=== PATIENT | female | born 1945 | race Caucasian/White ===

== ENCOUNTER 2019-03-23 08:30 | Outpatient (CLI) | payer MEDICARE ==
--- NOTE | 2019-03-23 14:00 | Mammography Report ---
Reason: ROUTINE MAMMO Procedure Date: 03/23/2019 Accession Number: [id number] / [id number] Procedure: MGS - Screening Mammo Dig Bilat CPT Code: Final Report FULL RESULT: EXAM: Screening Mammo Dig Bilat DATE: 03/23/2019 8:52 AM CLINICAL HISTORY: Routine screening TECHNIQUE: (B) - Bilateral CC and MLO views were obtained. COMPARISON: 04/19/2016, 07/24/2014, 10/07/2010 and 08/12/2009 PARENCHYMAL PATTERN: (A) - The breasts demonstrate scattered fibroglandular densities bilaterally. FINDINGS: No significant interval change. There are no suspicious masses, calcifications, or areas of distortion. IMPRESSION: Negative examination. BI-RADS category 1. RECOMMENDATION: (ANNUAL) - Recommend routine annual screening mammography. BI-RADS CATEGORY: (1) - Negative. STANDARD QUALIFYING STATEMENTS: 1. This examination was not reviewed with the aid of Computer-Aided Detection (CAD). 2. A negative or benign imaging report should not preclude biopsy if clinically suspicious findings are present. 3. Dense breasts may obscure an underlying neoplasm. 4. This examination was reviewed without the aid of 3D breast imaging (tomosynthesis).
== END 2019-03-23 08:31 | disposition home or self-care (01) ==
LOC: DI.S 08:30
DX: Z12.31 Encounter for screening mammogram for malignant neoplasm of breast (principal)
CPT/HCPCS: 77067

== ENCOUNTER 2019-07-17 09:44 | Outpatient (CLI) | payer MEDICARE, OTHER ==
[2019-07-17 10:41] VITALS: BP 129/91
--- NOTE | 2019-07-17 10:41 | SLEEP CARE CONSULTATION ---
Information from patient questionnaire entered by Noni Saldivar. I have reviewed and concur with the information entered by Noni Saldivar. This document represents the service I personally performed and the decisions made by me, Paulette Petersen MD, [facility]. History of Present Illness Reason for Visit: New patient Chief Complaint: reports: Unrefreshed sleep, Snoring, Observed pauses in breathing, Frequent awakenings at night Duration of Symptoms: 2+ years Usual bedtime: 1411-6254 Time it takes to fall asleep: 2-120 minutes Snores at night: Yes Observed to quit breathing while asleep: Yes Sleeps alone due to snoring: Yes (at times) Number of times waking at night: 2-5 Reasons for waking at night: reports: Other (cramps in left foot) Toss, Turn, or Twitch while sleeping: Yes Recalls having dreams: Yes (especially with melatonin) Usually gets out of bed at: 0443-5629 Morning headache: No Sleepy or fatigued during the day: No Ever fallen asleep while driving: Yes (once, years ago) Takes day naps: Yes Dreams during day naps: No Prior sleep studies: No Additional HPI information: I had the pleasure of seeing Mrs. Quiñonez along with her today regarding the possibility of her having a sleep disorder. As you know, she is a 74 year old lady who complains of loud snore, observed apneas, frequent awakenings, and unrefreshed sleep for the past 2 years. The patient tells me that she normally goes to bed around 10 10:30 pm, and it takes her approximately 2 minutes 2 hours to fall asleep. She occasionally takes melatonin. She has been told that she snores loudly and irregularly at night. She has also been observed to stop breathing in her sleep. Her spouse can still sleep in the same bed. She can recall waking up on the average of 2 - 5 times during the night. Most of the time she wakes up because of cramps in her left foot. She has awakened occasionally because of her own snoring, choking, and having to gasp for air. There is a lot of tossing and turning in her sleep. No somniloquy (sleep talking) or somnambulism (sleep walking). Generally she can recall having dreams. In the morning she usually gets up out of the bed around 6:30 - 7 a.m. not feeling refreshed nor rested. She usually does not have a morning headache. During the day she complains of feeling occasionally sleepy and fatigued. Her score on [place] Sleepiness Scale is 10 out of 24. She has fallen asleep while driving and has gone out of the [place]. She usually takes naps during the day. Upon falling asleep during the day she denies having vivid dreams. She has never had sleep paralysis, experienced cataplexy but reports symptoms of restless leg syndrome. She reports having impaired concentration during the day. Subjective Initial [place] Sleepiness Scale score: 10 Past Medical History Past Medical History: reports: Arthritis Social History The patient's occupation is RETIRED. Patient is and lives in [place]. Have you smoked in the past 12 months: No Alcohol use: Yes Alcohol amount and frequency: 1 glass, 3 times/week Caffeine use: Yes Caffeine amount and frequency: 2 cups/morning Family History Family history of sleep disordered breathing: Yes (father had trouble getting full night sleep) Allergies and Home Medications Drug allergies reviewed: Yes (NKDA) Home medication list reviewed: Yes (gabapentin and melatonin) Review of Systems Cardiovascular: denies: high blood pressure, palpitations, chest pain, irregular heart rate or pulse, leg or foot swelling, have to sleep sitting up, other Respiratory: denies: shortness of breath, wheeze, sputum production, chronic cough, other Gastrointestinal: denies: heartburn, difficulty swallowing, nausea, vomitting, diarrhea, abdominal pain, other Urinary: denies: incontinence, frequency, urgency, impotence, other Neurological: denies: headaches, seizure, head trauma, disorientation, speech dysfunction, gait or balance problems, fainting or unconsciousness, other Psychiatric: denies: Attention Deficit Hyperactivity, anxiety, depression, mood disorder, claustrophobia, other Ear/Nose/Throat: denies: nasal congestion, sinus problems, nose bleeds, dry mouth/throat, hoarseness, injury to nose, tonsillectomy, wisdom teeth removed, other Endocrine: denies: thyroid disease, history of goiter, sluggishness, too hot or cold, excessive thirst, increased appetite, increased urination, unexplained weakness, other Musculoskeletal: denies: joint pain, neck pain, back pain, joint swelling, muscle pain or cramping, mobility problems, other Immunologic: denies: sneezing, rash, itching, allergies to food or environment, other Physical Exam Vital signs obtained and entered by: Dr. Petersen Blood Pressure: 129/91 Cuff size: regular Heart Rate: 71 O2 Saturation: 98 Height: 5 ft 5 in Weight: 125 lb Body Mass Index: 20.7 BMI Classification: Healthy weight Neck circumference: 13 HEENT: No craniofacial malformation Nostrils: patent to airflow Turbinates: normal Septum: midline Mouth and throat: narrow oropharynx Soft palate: long Hard palate: normal Uvula: normal Uvula visualization: 50% Mallampati Class II Tongue: enlarged in size with teeth dia on lateral edges Tonsils: small Chin and jaw: normal size and position Neck: normal w/o lymphadenopathy or thyromegaly Heart: regular rate and rhythm Lungs: clear bilaterally Abdomen: soft, non-tender Extremities: no edema or clubbing Neurologic: intact, no focal deficits Impression and Plan IMPRESSION: 1. Obstructive Sleep Apnea-Hypopnea Syndrome, as suggested by history of loud and irregular snoring, observed cessation of breath while asleep, frequent awakenings during the night, unrefreshed sleep, cognitive impairment, and daytime hypersomnolence. Narrow oropharynx is a common predisposing factor for obstructive sleep apnea-hypopnea syndrome. Pathophysiology of sleep-disordered breathing was discussed. I recommend proceeding to polysomnography to confirm the diagnosis and to assess severity. If she has significant sleep disordered breathing, a manual CPAP titration study will also be performed to find the optimal treatment pressure. I informed the patient of what the sleep studies involve and after some discussion, she agreed to proceed. Plan: 1. Schedule an in-laboratory polysomnography + manual CPAP titration study. 2. Avoid long distance driving or when feeling sleepy. 3. Avoid alcohol, sedative and muscle relaxant around bedtime. 4. Return in 1 to 2 weeks after the study to discuss results and initiate therapy. I spent 100% of this visit face to face with the patient with greater than 50% of this was spent time counseling the patient and coordination of care.
== END 2019-07-17 09:45 | disposition home or self-care (01) ==
LOC: SC 09:44
PROVIDERS: ATTEND Internal Medicine Pulmonary Disease
DX: G47.10 Hypersomnia, unspecified (principal); R06.81 Apnea, not elsewhere classified; G47.8 Other sleep disorders; R41.89 Other symptoms and signs involving cognitive functions and awareness; R06.83 Snoring
CPT/HCPCS: 99203; G0463; 99212

== ENCOUNTER 2019-11-01 20:56 | Outpatient (CLI) | payer MEDICARE, OTHER | END 2019-11-01 20:57 | disposition home or self-care (01) | LOC: SC 20:56 | PROVIDERS: ATTEND Internal Medicine Pulmonary Disease | DX: G47.33 Obstructive sleep apnea (adult) (pediatric) (principal); G47.61 Periodic limb movement disorder | CPT/HCPCS: 95810 ==

== ENCOUNTER 2019-11-15 15:15 | Outpatient (CLI) | payer MEDICARE, OTHER ==
[2019-11-15 16:15] VITALS: BP 110/70
--- NOTE | 2019-11-15 16:15 | SLEEP CARE CONSULTATION ---
Information from patient questionnaire entered by Zulma Mckeon. I have reviewed and concur with the information entered by Zulma Mckeon. This document represents the service I personally performed and the decisions made by me, Jen Feliciano, RN, MSN, [employer]. History of Present Illness Service Date and Time: 11/15/2019 1515 Initial [place] Sleepiness Scale score: 10 (in 2019) Current [place] Sleepiness Scale score: 5 Additional HPI information: ADOLPH PIERCE returns with spouse for follow up and results of the recently performed polysomnography. I explained the pathophysiology behind obstructive sleep apnea. We then spent quite a bit of time discussing different treatment options. For mild obstructive sleep apnea, surgery and oral appliance are alternatives to nasal CPAP therapy but in moderate or severe cases, nasal CPAP is the most effective and reliable treatment. Because apnea is primarily in supine position, then positional management therapy could be effective. Methods discussed such as positioning with pillows, using a T-shirt with tennis balls in the back, and commercial products that have a pillow format on back to prevent supine sleep. I reviewed the impact of weight changes on sleep apnea . After some discussion, the patient opted to go with the oral appliance. Process discussed and Non Pap treatment pamphlets reviewed and given to patient. Patient counseled not drink alcohol less than 4 hours before bedtime as it can increase snoring and apnea. Patient was cautioned about risks of drowsy driving until sleepiness symptoms resolve. AAS patient education on snoring and sleep apnea given and reviewed. Sleep Study - Results Polysomnography/Home Sleep Study results: The quality of the study is good. The patient had slightly reduced sleep efficiency due to a prolonged awakening in the second half of the night. The sleep architecture was abnormal for sleep fragmentation and reduced amount of time spent in REM sleep. Respiratory monitoring showed mild obstructive sleep apneahypopnea (AHI = 6.2) associated with frequent arousals, oxyhemoglobin desaturation and mild hypoxia (buddy oxygen saturation of 87%). The respiratory events occurred almost exclusively during supine sleep (supine AHI = 7.4; non-supine = 4.53). Snore was very loud in intensity. There was mild periodic leg movement of sleep contributing to the sleep fragmentation.. Cardiac rhythm was normal sinus rhythm without significant arrhythmia. No abnormal behavior (parasomnia) observed during the night. CONCLUSIONS and RECOMMENDATIONS: 1. The patient has mild obstructive sleep apnea-hypopnea. ICD- 10 G47.33. Positive airway pressure therapy is indicated if the patient is symptomatic or has comorbid conditions such as hypertension, cerebrovascular or ischemic heart disease. Other types of therapy such as upper airway surgery and oral appliance may be considered depending of clinical findings. Because the respiratory events occurred almost exclusively during supine sleep, positioning therapy should be effective as well. A follow up manual CPAP titration study is recommended to find the optimal treatment pressure if CPAP is going to be utilized. 2. Periodic leg movement (ICD G47.61), mild, treatment may be indicated. Clinical correlation advised. Electronically signed by: Paulette Petersen M.D. Diplomate, [place] [employer] Physical Exam Blood Pressure: 110/70 Cuff size: regular Heart Rate: 75 O2 Saturation: 98 Height: 5 ft 5 in Weight: 122 lb 3.2 oz Body Mass Index: 20.3 BMI Classification: Healthy weight Impression and Plan 1. Obstructive Sleep Apnea-Hypopnea Syndrome, mild, with lowest oxygen saturation of 87%. Possibly this is the cause of the patients symptoms of unrefreshed sleep, and excessive daytime sleepiness. After some discussion, the patient opted to go with the oral appliance. AASM non PAP treatment patient education reviewed and given to patient with list of accredited dentists and one non-accredited dentist in general area to call for a consult. A prescription was given to start process. Patient advised to check insurance to see if oral appliance is covered. Some dentists do not take Medicare. I will have patient follow up in 3 months to check effectiveness of treatment. If reduction of s ymptoms and comfortable with treatment, a polysomnography will be ordered using the oral appliance to check efficacy of treatment. Because the apnea is more severe supine, I instructed to avoid sleeping supine using pillow positioning until able to start oral appliance use. 2. Periodic limb movement, mild, that did not fragment patients sleep. Periodic limb movement of sleep (PLMS) is characterized by episodes of repetitive limb movements that occur during sleep and usually involve the lower limbs. The etiology is unknown but can be associated with restless leg syndrome (RLS), neuropathy, spinal cord diseases, kidney disease, rheumatological disorders, narcolepsy, obstructive sleep apnea, and REM sleep behavior disorder. Other factors that can increase PLMS and/or RLS are heredity and iron deficiency as reflected by a low serum ferritin level below 50 to 75mcg / L. Several medications can precipitate or aggravate PLMS such as selective serotonin re- uptake inhibitor antidepressants, tricyclic antidepressants, lithium, and dopamine receptorantagonists with the exception of bupropion. Caffeine can also aggravate PLMS and should be avoided. Sleep hygiene methods can also improve sleep as well as lifestyle changes such as regular exercise. Patient was advised that further evaluation is indicated due to her back pain and leg tingling and cramps. She is to follow up with her PCP. * Prescription for oral appliance ( advanced mandibular device). * Avoid alcohol consumption near bedtime * The patient is cautioned about driving until sleepiness is completely resolved. * Return in 3 months after oral applaince for follow up. I will check her response at that time. Visit Type: In Office Time Spent with Patient (minutes): 35 Provider Statement: I spent 100% of the Face to Face Visit with the patient with greater than 50% spent counseling the patient and coordination of care.
== END 2019-11-15 15:16 | disposition home or self-care (01) ==
LOC: SC 15:15
PROVIDERS: ATTEND Nurse Practitioner Family
DX: G47.33 Obstructive sleep apnea (adult) (pediatric) (principal); G47.61 Periodic limb movement disorder
CPT/HCPCS: 99214; G0463; 99212

== ENCOUNTER 2021-01-03 15:43 | Emergency (ER) | payer MEDICARE, OTHER ==
[2021-01-03 16:04] VITALS: BP 160/90
--- NOTE | 2021-01-03 17:10 | ED Physician Documentation ---
PD HPI ABD PAIN - Stated complaint Stated Complaint: BLOOD IN STOOL - Chief complaint Chief Complaint: Abd Pain - History obtained from History obtained from: Patient - Additional information Additional information: This is a generally very healthy 75-year-old woman who had a bloody bowel movement today. It was a single episode. The bowel movement was otherwise normal, not particularly hard or diarrheal. It was not painful. There was blood in the bowl, less so on the toilet paper and not really mixed in with the stool. She never had this before. Last colonoscopy 5 years ago with polyps, no other findings per her. She thought she might of had bloody stools a couple times last week but it looked different to her, and she had been eating beets. Review of Systems Constitutional: reports: Reviewed and negative Throat: reports: Reviewed and negative Cardiac: reports: Reviewed and negative Respiratory: reports: Reviewed and negative PD PAST MEDICAL HISTORY - Allergies Allergies/Adverse Reactions: Allergies Allergy/AdvReac Type Severity Reaction Status Date / Time No Known Drug Allergies Allergy Verified 01/03/21 16:02 PD ED PE NORMAL - Vitals Vital signs reviewed: Yes - General General: Alert and oriented X 3, No acute distress - HEENT HEENT: PERRL, EOMI - Abdomen Abdomen: Soft, Non tender - Rectal Rectal: Other (Yang done with Diane CHIANG present and chaperoning. There is a left-sided hemorrhoid with evidence of recent bleeding.) - Neuro Neuro: Alert and oriented X 3, Normal speech - Psych Psych: Normal mood, Normal affect Results - Vitals Vitals: Vital Signs - 24 hr 01/03/21 16:02 Temperature 36.5 C Heart Rate 70 Respiratory 16 Rate Blood Pressure 160/90 H O2 Saturation 98 Oxygen O2 Source Room air PD MEDICAL DECISION MAKING - ED course ED course: 75-year-old woman with single episode of hematochezia. This looks like it was due to a hemorrhoid on exam. Her hemodynamics are normal and her exam is otherwise benign. She was given close return precautions. Departure - Departure Disposition: 01 Home, Self Care Clinical Impression: Bleeding hemorrhoid Condition: Good Record reviewed to determine appropriate education?: Yes Instructions: ED Hematochezia Stable Comments: As discussed, it looks today like the source of your bleeding was a hemorrhoid. This is almost always benign and self-limited. That said return if worsening or if you develop other new or worrisome symptoms. Talk with your doctor about referral for colonoscopy as well since it sounds like you may be due.
== END 2021-01-03 17:22 | disposition home or self-care (01) ==
LOC: ED 15:43
DX: K64.9 Unspecified hemorrhoids (principal)
CPT/HCPCS: 99281; 99282

== ENCOUNTER 2021-01-22 07:00 | Outpatient (CLI) | payer MEDICARE, OTHER | END 2021-01-22 23:59 | disposition home or self-care (01) | LOC: COV 07:00 | PROVIDERS: ATTEND Family Medicine | DX: R05 Cough (principal); R53.83 Other fatigue; R68.83 Chills (without fever); R07.0 Pain in throat; R19.7 Diarrhea, unspecified; R09.81 Nasal congestion; J34.89 Other specified disorders of nose and nasal sinuses; Z20.822 Contact with and (suspected) exposure to COVID-19 ==

== ENCOUNTER 2023-03-24 08:14 | Outpatient (CLI) | payer MEDICARE ==
[2023-03-24 14:41] LABS: BASOPHILS # (AUTO) 0.1 10^3/uL (0.0-0.1); BASOPHILS % (AUTO) 0.9 %; EOSINOPHILS # (AUTO) 0.4 10^3/uL (0.0-0.7); EOSINOPHILS % (AUTO) 4.8 %; HCT - HEMATOCRIT 37.1 % (37.0-47.0); HGB - HEMOGLOBIN 12.2 g/dL (12.0-16.0); LYMPHOCYTES # (AUTO) 2.4 10^3/uL (1.5-3.5); LYMPHOCYTES % (AUTO) 30.8 %; MEAN CORPUSCULAR HEMOGLOBIN 30.5 pg (27.0-31.0); MEAN CORPUSCULAR HGB CONC 32.9 g/dL (32.0-36.0); MEAN CORPUSCULAR VOLUME 92.8 fL (81.0-99.0); MEAN PLATELET VOLUME 9.4 fL (7.9-10.8); MONOCYTES # (AUTO) 0.8 10^3/uL (0.0-1.0); MONOCYTES % (AUTO) 9.8 %; NEUTROPHILS # (AUTO) 4.2 10^3/uL (1.5-6.6); NEUTROPHILS % (AUTO) 53.4 %; PLT - PLATELET COUNT 398 10^3/uL (130-450); RED CELL DISTRIBUTION WIDTH 13.3 % (12.0-15.0); WHITE BLOOD COUNT 7.8 x10^3/uL (4.8-10.8)
[2023-03-24 15:18] LABS: ALBUMIN 3.9 g/dL (3.2-5.5); ALBUMIN/GLOBULIN RATIO 1.3 (1.0-2.2); ALKALINE PHOSPHATASE 56 IU/L (42-121); ALT ALANINE AMINOTRANSFERASE 15 IU/L (10-60); AST ASPARTATE AMINOTRANSFERASE 19 IU/L (10-42); BILIRUBIN,TOTAL 0.5 mg/dL (0.2-1.0); BUN - BLOOD UREA NITROGEN 16 mg/dL (6-20); CALCIUM 9.2 mg/dL (8.5-10.3); CARBON DIOXIDE - CO2 31 mmol/L (21-32); CHLORIDE 107 mmol/L (101-111); CHOL/HDL RATIO 2.5 (<4.4); CHOLESTEROL 158 mg/dL; CREATININE 0.9 mg/dL (0.6-1.3); GFR - MDRD 61 (>89); GLUCOSE 87 mg/dL (74-104); HDL CHOLESTEROL 62 mg/dL; POTASSIUM 4.1 mmol/L (3.5-4.5); SODIUM 141 mmol/L (135-145); TOTAL PROTEIN 6.8 g/dL (6.4-8.9)
[2023-03-24 16:00] LABS: THYROID STIMULATING HORMONE 2.94 uIU/mL (0.34-5.60)
[2023-03-24 16:28] LABS: LDL CHOLESTEROL,CALCULATED 81 mg/dL; LDL/HDL RATIO 1.3 (<4.4); TRIGLYCERIDES 77 mg/dL (48-352); VLDL CHOLESTEROL 15 mg/dL
== END 2023-03-24 08:15 | disposition home or self-care (01) ==
LOC: LAB.S 08:14
PROVIDERS: ATTEND Nurse Practitioner Acute Care
DX: Z13.228 Encounter for screening for other metabolic disorders (principal); Z13.220 Encounter for screening for lipoid disorders; Z13.29 Encounter for screening for other suspected endocrine disorder; Z13.0 Encounter for screening for diseases of the blood and blood-forming organs and certain disorders involving the immune mechanism
CPT/HCPCS: 36415; 80053; 80061; 83721; 84443; 85025

== ENCOUNTER 2023-05-06 08:00 | Outpatient (CLI) | payer MEDICARE | END 2023-05-06 08:01 | disposition home or self-care (01) | LOC: LAB.S 08:00 | PROVIDERS: ATTEND Registered Nurse | DX: U07.1 COVID-19 (principal) ==

== ENCOUNTER 2023-06-06 14:05 | Outpatient (CLI) | payer MEDICARE ==
--- NOTE | 2023-06-06 20:49 | Ultrasound Report ---
PROCEDURE: Ankle Brachial Index INDICATIONS: BILATERAL LEG PAIN, PAD TECHNIQUE: Ankle-brachial indices were obtained bilaterally and recorded. COMPARISONS: None. FINDINGS: Right brachial: 172 mmHg Right ankle: 153 mmHg Right ankle brachial index (ALAN): 0.8 Left brachial: 170mmHg Left ankle: 158 mmHg Left ankle brachial index (ALAN): 0.9 Healing potential: Ankle pressures >55 mm Hg in non-diabetics and >80 mm Hg in diabetics are likely to achieve primary h ealing of ischemic foot ulcers. Toe pressures >30 mm Hg are likely to achieve primary healing of ischemic foot ulcers, toe or transme tatarsal amputations. IMPRESSION: 1.Right lower extremity resting ALAN is mildly reduced at 0.8. 2.Left lower extremity resting ALAN is borderline normal at 0.9. Reviewed by: Edilberto Mascorro MD on 06/06/2023 8:48 PM PST Approved by: Edilberto Mascorro MD on 06/06/2023 8:48 PM PST Station ID: [id number]
--- NOTE | 2023-06-06 20:52 | Ultrasound Report ---
PROCEDURE: Arterial Duplex Lwr Ext BL INDICATIONS: BILATERAL LEG PAIN, PAD TECHNIQUE: Color and pulse Doppler interrogation was performed of both lower extremity arterial systems, with im age documentation. COMPARISON: None FINDINGS: Right lower extremity: Common femoral artery: 92 cm/sec, with triphasic flow. Deep femoral artery: 45 cm/sec, with biphasic flow. Proximal superficial femoral artery: 104 cm/sec, with biphasic flow. Mid superficial femoral artery: 93 cm/sec, with biphasic flow. Distal superficial femoral artery: 85 cm/sec, with biphasic flow. Popliteal artery: 68 cm/sec, with biphasic flow. Posterior tibial artery: 68 cm/sec, with biphasic flow. Anterior tibial artery/dorsalis pedis: 65/91 cm/sec, with biphasic flow. Louis-scale imaging description: Scattered atherosclerotic plaque. Left lower extremity: Common femoral artery: 116 cm/sec, with triphasic flow. Deep femoral artery: 61 cm/sec, with biphasic flow. Proximal superficial femoral artery: 110 cm/sec, with biphasic flow. Mid superficial femoral artery: 87 cm/sec, with biphasic flow. Distal superficial femoral artery: 89 cm/sec, with biphasic flow. Popliteal artery: 62 cm/sec, with biphasic flow. Posterior tibial artery: 62 cm/sec, with biphasic flow. Anterior tibial artery/dorsalis pedis: 67/87 cm/sec, with biphasic flow. Louis-scale imaging description: Scattered atherosclerotic plaque. IMPRESSION: Multiphasic waveforms in the bilateral lower extremity arterial vasculature with no velocity shift to suggest a hemodynamically significant stenosis. Reviewed by: Edilberto Mascorro MD on 06/06/2023 8:51 PM PST Approved by: Edilberto Mascorro MD on 06/06/2023 8:51 PM PST Station ID: [id number]
== END 2023-06-06 14:06 | disposition home or self-care (01) ==
LOC: DI 14:05
PROVIDERS: ATTEND Nurse Practitioner Acute Care
DX: I77.9 Disorder of arteries and arterioles, unspecified (principal)
CPT/HCPCS: 93922; 93925

== ENCOUNTER 2023-06-27 11:28 | Outpatient (CLI) | payer MEDICARE ==
--- NOTE | 2023-06-27 22:19 | SLEEP CARE CONSULTATION ---
Information from patient questionnaire entered by Sole Sexton. I have reviewed and concur with the information entered by Sole Sexton. This document represents the service I personally performed and the decisions made by me, Paulette Petersen MD, [facility]. History of Present Illness Service Date and Time: 06/27/2023 1128 Reason for Visit: New patient Chief Complaint: reports: Insomnia, Unrefreshed sleep, Snoring, Observed pauses in breathing, Frequent awakenings at night Date of Onset: QUITE A FEW YRS Usual bedtime: 10PM Time it takes to fall asleep: 2MINS-2HRS Snores at night: Yes Observed to quit breathing while asleep: Yes Sleeps alone due to snoring: No Number of times waking at night: 1-3 Reasons for waking at night: reports: Pain, Bathroom, Other (UNKNOWN ) Toss, Turn, or Twitch while sleeping: Yes Recalls having dreams: Yes Usually gets out of bed at: 6-7 Feels refreshed in the morning: Yes Morning headache: No Sleepy or fatigued during the day: Yes Ever fallen asleep while driving: No Takes day naps: Yes Dreams during day naps: No Prior sleep studies: Yes Additional HPI information: I had the pleasure of seeing Mrs. Quiñonez back today after 4 years. In 2019, she had a sleep study here showing mild obstructive sleep apnea-hypopnea (AHI = 6.2). At that time she did not want to use a CPAP because her thought he would not be able to sleep with a CPAP in the bedroom. She saw a dentist and was fitted with an oral appliance. She quit using it because it did not improve her snore at all. Recently, she was diagnosed with hypertension and her blood pressure is usually the highest in the morning. She presently takes two antihypertensives. According to her , she continues to snore loudly and stops breathing in her sleep. The patient would like to be reevaluated. Her weight remains the same. - Parasomnia Symptoms Ever been unable to move upon waking from sleep: No Walks in sleep: No Talks in sleep: No Ever acted out dreams in sleep: No Ever felt weak in the knees when startled or emotional: No Bothered by creepy, crawly, restless sensations in legs: Yes Problems with memory or concentration: Yes Subjective Initial [place] Sleepiness Scale score: 10 (in 2019) Current [place] Sleepiness Scale score: 9 (06/06/23) Past Medical History Past Medical History: reports: Hypertension, Arthritis Social History The patient's occupation is a RETIRED. Patient is and lives in [place]. Have you smoked in the past 12 months: No Alcohol use: Yes Alcohol amount and frequency: 1 GLASS 3C WEEK Caffeine use: Yes Caffeine amount and frequency: 1-2 CUPS DAILY Family History Family history of sleep disordered breathing: No Allergies and Home Medications Known drug allergies: No Drug allergies reviewed: Yes Home medication list reviewed: Yes Allergy and home medication list: Allergies No Known Drug Allergies Allergy (Verified 06/24/23 11:51) Review of Systems Weight loss over past 5 years: 5+ Cardiovascular: reports: high blood pressure Respiratory: reports: shortness of breath Gastrointestinal: denies: heartburn, difficulty swallowing, nausea, vomitting, diarrhea, abdominal pain, other Urinary: denies: incontinence, frequency, urgency, impotence, other Neurological: denies: headaches, seizure, head trauma, disorientation, speech dysfunction, gait or balance problems, fainting or unconsciousness, other Psychiatric: denies: Attention Deficit Hyperactivity, anxiety, depression, mood disorder, claustrophobia, other Ear/Nose/Throat: reports: nasal congestion, hoarseness, wisdom teeth removed Musculoskeletal: reports: joint pain, back pain, muscle pain or cramping Immunologic: reports: sneezing Physical Exam Vital signs obtained and entered by: SOLE Raphael MA Blood Pressure: 138/82 (RIGHT ARM) Cuff size: regular Heart Rate: 60 O2 Saturation: 99 Height: 5 ft 5 in Weight: 121 lb 12.8 oz Body Mass Index: 20.2 BMI Classification: Normal Neck circumference: 12.5 Mood/affect: Normal HEENT: No craniofacial malformation Nostrils: patent to airflow Turbinates: normal Septum: midline Mouth and throat: narrow oropharynx Soft palate: long Hard palate: normal Uvula: normal Uvula visualization: 50% Mallampati Class II Tongue: enlarged in size with teeth dia on lateral edges Tonsils: small Chin and jaw: normal size and position Neck: normal w/o lymphadenopathy or thyromegaly Heart: regular rate and rhythm Lungs: clear bilaterally Extremities: no edema or clubbing Neurologic: intact Impression and Plan IMPRESSION: 1. Obstructive Sleep Apnea-Hypopnea Syndrome, mild, as previously diagnosed but untreated. Oral appliance therapy was unsuccessful. Because she now has hypertension, I think she should be reevaluated. If the sleep-related breathing disorder has worsened, CPAP should definitely be tried (her is now more open to her using a CPAP because he realizes how quiet they are). Plan: 1. Schedule an in-laboratory polysomnography. 2. Return in 1 to 2 weeks after the study to discuss results and initiate therapy. Follow up with Sleep Care in: 1-2 months Visit Type: In Office Time Spent with Patient (minutes): 15 Provider Statement: I spent 100% of the Face to Face Visit with the patient with greater than 50% spent counseling the patient and coordination of care.
[2023-06-27 22:25] VITALS: BP 138/82; O2SAT 99
== END 2023-06-27 11:29 | disposition home or self-care (01) ==
LOC: SC 11:28
PROVIDERS: ATTEND Internal Medicine Pulmonary Disease
DX: G47.33 Obstructive sleep apnea (adult) (pediatric) (principal); I10 Essential (primary) hypertension
CPT/HCPCS: 99202; G0463; 99212

== ENCOUNTER 2023-08-15 19:42 | Outpatient (CLI) | payer MEDICARE | END 2023-08-15 19:43 | disposition home or self-care (01) | LOC: SC 19:42 | PROVIDERS: ATTEND Internal Medicine Pulmonary Disease | DX: G47.33 Obstructive sleep apnea (adult) (pediatric) (principal); G47.61 Periodic limb movement disorder; I10 Essential (primary) hypertension | CPT/HCPCS: 95810 ==

== ENCOUNTER 2023-09-05 13:35 | Outpatient (CLI) | payer MEDICARE ==
--- NOTE | 2023-09-05 14:31 | SLEEP CARE CONSULTATION ---
Information from patient questionnaire entered by Sole Sexton. I have reviewed and concur with the information entered by Sole Sexton. This document represents the service I personally performed and the decisions made by me, Paulette Petersen MD, [facility]. History of Present Illness Service Date and Time: 09/05/2023 1335 Initial [place] Sleepiness Scale score: 10 (in 2019) Current [place] Sleepiness Scale score: 5 (09/05/23) Additional HPI information: Ms. Quiñonez returned with her for follow up of the sleep study she had on 08/15/23. The polysomnography showed that The patient had slightly reduced sleep efficiency due to two prolonged awakenings during the night. The sleep architecture was abnormal for sleep fragmentation and reduced amount of time spent in REM and slow wave sleep (N3). Respiratory monitoring showed mild obstructive sleep apnea-hypopnea (AHI = 7.0) associated with frequent arousals, oxyhemoglobin desaturation and mild hypoxia (buddy oxygen saturation of 87%). The respiratory events occurred almost exclusively during supine sleep (supine AHI = 35.3; non-supine = 3.95). Snore was light in intensity. There was mild periodic leg movement of sleep, not contributing to the sleep fragmentation. Cardiac rhythm was normal sinus rhythm without significant arrhythmia. No abnormal behavior (parasomnia) observed during the night. The patient was informed of these findings. I explained to her the pathophysiology behind obstructive sleep apnea. We then spent quite a bit of time discussing different treatment options. For mild obstructive sleep apnea, surgery and oral appliance are alternatives to nasal CPAP therapy but in moderate or severe cases, nasal CPAP is the most effective and reliable treatment. After some discussion, she opted to go with the nasal CPAP therapy. I explained to her how CPAP machine works and what to expect when using the machine. She is encouraged to use CPAP every night especially in the first 2 to 3 nights in order to get used to it. She should call me or her CPAP supplier to discuss any mechanical problem that may occur. If she snores while wearing the CPAP or feels like she needs more air from the machine, she should notify me and I will increase the pressure. Sleep Study - Results Type of Sleep Study: Polysomnography (COMPLETED 08/15/23) Prior sleep studies: Yes Allergies and Home Medications Drug allergies reviewed: Yes Home medication list reviewed: Yes Allergy and home medication list: Allergies No Known Drug Allergies Allergy (Verified 09/01/23 14:48) Review of Systems Review of systems same as previous: Yes (NO CHANGE) Physical Exam Vital signs obtained and entered by: SOLE Raphael MA Blood Pressure: 144/68 (RIGHT ARM) Cuff size: regular Heart Rate: 68 O2 Saturation: 98 Height: 5 ft 5 in Weight: 121 lb 6.4 oz Body Mass Index: 20.2 BMI Classification: Normal Impression and Plan IMPRESSION: 1. Obstructive Sleep Apnea-Hypopnea Syndrome, mild, and positional. Possibly, this is the cause of the patients symptoms of unrefreshed sleep, and excessive daytime sleepiness. As mentioned above, the patient will be started on an autoCPAP set between 4 and 12 cmH2O. Depending on her response and compliance she may be brought back for an overnight CPAP titration study. PLAN: 1. Prescription made for an autoCPAP, heated humidifier, and related supplies through [employer]. 2. Avoid sleeping supine if not using CPAP. 3. Return for follow up after one month of using the CPAP. Prescriptions: Auto CPAP Follow up with Sleep Care in: 1-2 months Visit Type: In Office Other Participants: Spouse/Significant Other Time Spent with Patient (minutes): 15 Provider Statement: I spent 100% of the Face to Face Visit with the patient with greater than 50% spent counseling the patient and coordination of care.
[2023-09-05 14:41] VITALS: BP 144/68; O2SAT 98
== END 2023-09-05 13:36 | disposition home or self-care (01) ==
LOC: SC 13:35
PROVIDERS: ATTEND Internal Medicine Pulmonary Disease
DX: G47.33 Obstructive sleep apnea (adult) (pediatric) (principal)
CPT/HCPCS: 99212; G0463

== ENCOUNTER 2023-11-28 10:16 | Outpatient (CLI) | payer MEDICARE ==
--- NOTE | 2023-11-28 12:43 | SLEEP CARE CONSULTATION ---
Information from patient questionnaire entered by Sole Sexton. I have reviewed and concur with the information entered by Sole Sexton. This document represents the service I personally performed and the decisions made by me, Paulette Petersen MD, [facility]. History of Present Illness Service Date and Time: 11/28/2023 1016 Reason for follow up: first compliance Equipment type: CPAP (RESMED S/U 09/16/23) Prior sleep studies: Yes Type of Sleep Study: Polysomnography (COMPLETED 08/15/23) HPI additional information: Ms. Quiñonez returned today for follow up of nasal CPAP therapy. She was d iagnosed with mild obstructive sleep apnea-hypopnea syndrome. The patient went to [employer], for the equipment and was fitted with a nasal mask. She reports using the device nightly and all through the night. The compliance report shows usage in 59 nights out of the past 60 nights, averaging 5.6 hours a night. The > 4 hour compliance rate for the past 60 days is 85%. She complained of no particular problem with the device such as soreness on the face, dry nose, epistaxis, nasal congestion or headache. She thinks that the pressure of 4 - 12 cmH2O is comfortable. On the CPAP therapy she notices improvement in her sleep quality, and that she wakes up feeling fresher in the morning and more awake/alert during the day. The [place] Sleepiness Scale score 6. Her notices no snore at all. The average residual AHI is 0.8; and air leak, 1.1 L/min. The 90th percentile pressure is 8.8 cmH2O. Sleep Study - Results Type of Sleep Study: Polysomnography (COMPLETED 08/15/23) Prior sleep studies: Yes CPAP Compliance Data - Data Reviewed with Patient Average duration of nightly device use: 5HRS 49MINS Compliance rate %: 70 (09/16/23-10/15/23) Current pressure setting (cmH2O): 4-12 Average residual AHI: 1.1 Subjective Initial [place] Sleepiness Scale score: 10 (in 2019) Current [place] Sleepiness Scale score: 6 (11/28/23) Allergies and Home Medications Allergy and home medication list: Allergies No Known Drug Allergies Allergy (Verified 11/22/23 07:52) Review of Systems Review of systems same as previous: Yes (NO CHANGE) Physical Exam Vital signs obtained and entered by: SOLE Raphael MA Blood Pressure: 131/80 (LEFT ARM) Cuff size: ADULT SMAL Heart Rate: 65 O2 Saturation: 99 Height: 5 ft 5 in Weight: 118 lb 6.4 oz Body Mass Index: 19.7 BMI Classification: Normal Impression and Plan IMPRESSION: 1. Obstructive Sleep Apnea-Hypopnea Syndrome, mild (AHI = 7.0), with the patient doing well on nasal CPAP therapy. She has excellent compliance and significant clinical improvement. The current pressure appears effective and comfortable. Overall, she is very satisfied with the treatment and plans to continue with it long-term. No adjustment is necessary today. I showed her how to adjust the humidity level. PLAN: 1. Continue with autoCPAP set at 4 - 12 cmH2O. 2. Try ResMed N30i mask 3. Return in one year for follow up or earlier if there is any problem with the treatment. Follow up with Sleep Care in: 1 year Visit Type: In Office Time Spent with Patient (minutes): 15 Provider Statement: I spent 100% of the Face to Face Visit with the patient with greater than 50% spent counseling the patient and coordination of care.
[2023-11-28 12:45] VITALS: BP 131/80; O2SAT 99
== END 2023-11-28 10:17 | disposition home or self-care (01) ==
LOC: SC 10:16
PROVIDERS: ATTEND Internal Medicine Pulmonary Disease
DX: G47.33 Obstructive sleep apnea (adult) (pediatric) (principal)
CPT/HCPCS: 99212; G0463